=== PATIENT | female | born 1990 | race African-American/Black ===

== ENCOUNTER 2017-07-14 20:41 | Emergency (ER) | payer OTHER ==
[~2017-07-14] VITALS: Ht 167.6 cm; Wt 101.0 kg
[2017-07-14 20:43] VITALS: Ht 167.6 cm; Wt 101.0 kg
[2017-07-14] MEDS ORDERED: ONDANSETRON (ODT) 4 MG TAB ODT STA (22:19)
[2017-07-14] MEDS ORDERED: KETOROLAC 30 MG INJ IM STA (22:19)
[2017-07-14] MEDS ORDERED: MECLIZINE 12.5 MG TAB PO ONE (22:30)
--- NOTE | 2017-07-14 22:55 | RADRPT ---
PROCEDURE: CT Brain without contrast. CLINICAL INDICATION: Headaches. Neurologic deficit TECHNIQUE: A CT of the brain was performed on multidetector high-resolution CT scanner utilizing a xial sections from the skull base through the vertex without contrast. One or more of the following dose reduction techniques were used: Automated exposure control, Adjustment of the mA and/or kV acc ording to patient size, and/or use of iterative reconstruction technique. DICOM images are available . DOSE: CTDI = 45 mGy and the DLP = 720 mGy-cm. COMPARISON: None available FINDINGS: No acute intracranial hemorrhage, significant mass effect or midline shift. The miranda-white different iation is grossly preserved. The ventricles are normal in size for age. No significant opacification of the visualized paranasal sinuses or mastoids. IMPRESSION: No acute intracranial findings. RPTAT: AA .Andre Dale MD, MD Date Time Electronically viewed and signed by .Andre Dale MD, on 07/14/2017 22:55 .T/
[2017-07-14 23:37] LABS: BASOPHILS % 0.5 % (0.0-2.0); EOSINOPHILS # 0.1 10^3/ul (0.0-0.5); EOSINOPHILS % 0.8 % (0.0-7.0); HEMATOCRIT 38.3 % (37.0-47.0); LYMPHOCYTES # 2.8 10^3/ul (0.8-2.9); LYMPHOCYTES % 46.3 % (15.0-51.0); MEAN CORPUSCULAR HGB CONC 31.3 g/dl (32.0-37.0); MEAN CORPUSCULAR VOLUME 82.9 fl (82.0-101.0); MEAN PLATELET VOLUME 9.4 fl (7.4-10.4); MONOCYTE # 0.5 10^3/ul (0.3-0.9); MONOCYTES % 7.6 % (0.0-11.0); NEUTROPHIL # 2.7 10^3/ul (1.6-7.5); NEUTROPHILS % 44.5 % (39.0-77.0); PLATELET COUNT 407 10^3/UL (140-415); RED BLOOD COUNT 4.62 10^6/ul (4.20-5.40); WHITE BLOOD COUNT 6.1 10^3/ul (4.8-10.8)
[2017-07-14 23:57] LABS: CALCIUM 9.2 mg/dl (8.4-10.2); CREATININE 0.78 mg/dl (0.44-1.00); POTASSIUM 3.7 mmol/L (3.5-5.1)
[2017-07-15 00:28] VITALS: BP 121/80; PULSE 70; RESP 20; TEMP 98.1
--- NOTE | 2017-07-19 09:09 | ERD ---
ER Documentation Chief Complaint Chief Complaint felt dizzy today HPI Patient is a 27 yo female presenting for dizziness and headache which began yesterday at 1pm. She localizes the headache behind the L eye. She took ibuprofen and it resolved now. She describes the dizziness as intermittent, room spinning. She denies n/v/d, fevers and other sxs currently. ROS All systems reviewed and are negative except as per history of present illness. Allergies Allergies: Coded Allergies: No Known Allergy (Unverified , 03/04/12) PMhx/Soc Medical and Surgical Hx: pt denies Medical Hx, pt denies Surgical Hx Hx Alcohol Use: No Hx Substance Use: No Hx Tobacco Use: No Smoking Status: Never smoker Physical Exam Physical Exam Const: Non toxic well appearing female in no acute distress. Head: Atraumatic Eyes: Normal Conjunctiva ENT: Normal External Ears, Nose and Mouth. Neck: Full range of motion..~ No meningismus. Resp: Clear to auscultation bilaterally Cardio: Regular rate and rhythm, no murmurs Skin: No petechiae or rashes Ext: No cyanosis, or edema Neur: Awake and alert Psych: Normal Mood and Affect Results 24 hrs Laboratory Tests Test 07/14/17 22:24 White Blood Count 6.110^3/ul Red Blood Count 4.6210^6/ul Hemoglobin 12.0g/dl Hematocrit 38.3% Mean Corpuscular Volume 82.9fl Mean Corpuscular Hemoglobin 26.0pg Mean Corpuscular Hemoglobin Concent 31.3g/dl Red Cell Distribution Width 14.0% Platelet Count 69355^3/UL Mean Platelet Volume 9.4fl Neutrophils % 44.5% Lymphocytes % 46.3% Monocytes % 7.6% Eosinophils % 0.8% Basophils % 0.5% Nucleated Red Blood Cells % 0.0/100WBC Neutrophils # 2.710^3/ul Lymphocytes # 2.810^3/ul Monocytes # 0.510^3/ul Eosinophils # 0.110^3/ul Basophils # 0.010^3/ul Nucleated Red Blood Cells # 0.010^3/ul Sodium Level 139mmol/L Potassium Level 3.7mmol/L Chloride Level 105mmol/L Carbon Dioxide Level 27mmol/L Anion Gap 11 Blood Urea Nitrogen 11mg/dl Creatinine 0.78mg/dl Glucose Level 81mg/dl Calcium Level 9.2mg/dl Beta HCG, Quantitative 52.6mIU/ml Current Medications Medications (Trade) Dose Ordered Sig/Katalina Route PRN Reason Start Time Stop Time Status Last Admin Dose Admin Meclizine HCl (Antivert) 25 mg ONCE ONCE PO 07/14/17 22:30 07/14/17 23:10 DC Ondansetron HCl (Zofran Odt) 4 mg ONCE STAT ODT 07/14/17 22:19 07/14/17 22:24 DC 07/14/17 23:21 Ketorolac Tromethamine (Toradol) 30 mg ONCE STAT IM 07/14/17 22:19 07/14/17 23:10 DC Procedures/MDM Patient is a pleasant 27-year-old female presenting to the emergency department with complaints of intermittent dizziness which she first noticed yesterday. Physical exam is essentially unremarkable. Review of laboratory results: CBC showed no signs of leukocytosis or anemia. Chemistry panel was within normal limits. Beta hCG quantitative was 52. The patient denied chance of initially and stated she was wearing a contraceptive patch. The patient remained stable throughout her ED course and her dizziness improved completely. Due to the nature of the patient's severe dizziness on her presentation brain CT was obtained. This showed no acute intracranial findings. The patient was counseled regarding her results and she was advised to follow-up with [facility] and her primary care physician. She was given the [facility] [employer] referral list. Because her symptoms resolved, she was stable for discharge. She felt comfortable with her results and her questions and concerns were addressed. She is to return immediately for any new or worsening symptoms. Low suspicion for ectopic , intercranial pathology, or other emergent conditions at time of discharge. PROCEDURE: CT Brain without contrast. CLINICAL INDICATION: Headaches. Neurologic deficit TECHNIQUE: A CT of the brain was performed on multidetector high-resolution CT scanner utilizing axial sections from the skull base through the vertex without contrast. One or more of the following dose reduction techniques were used: Automated exposure control, Adjustment of the mA and/or kV according to patient size, and/or use of iterative reconstruction technique. DICOM images are available. DOSE: CTDI = 45 mGy and the DLP = 720 mGy-cm. COMPARISON: None available FINDINGS: No acute intracranial hemorrhage, significant mass effect or midline shift. The miranda-white differentiation is grossly preserved. The ventricles are normal in size for age. No significant opacification of the visualized paranasal sinuses or mastoids. IMPRESSION: No acute intracranial findings. RPTAT: AA .Andre Dale MD, Date Time Electronically viewed and signed by .Andre Dale MD, on 07/14/2017 22:55 Departure Diagnosis: Primary Impression: state, incidental Additional Impression: Dizziness Condition: Fair Patient Instructions: : Body Changes, Dizziness, Unk Cause, , New Dx Referrals: [facility] YOU HAVE RECEIVED A MEDICAL SCREENING EXAM AND THE RESULTS INDICATE THAT YOU DO NOT HAVE A CONDITION THAT REQUIRES URGENT TREATMENT IN THE EMERGENCY DEPARTMENT. FURTHER EVALUATION AND TREATMENT OF YOUR CONDITION CAN WAIT UNTIL YOU ARE SEEN IN YOUR DOCTORS OFFICE WITHIN THE NEXT 1-2 DAYS. IT IS YOUR RESPONSIBILITY TO MAKE AN APPOINTMENT FOR FOLOW-UP CARE. IF YOU HAVE A PRIMARY DOCTOR --you should call your primary doctor and schedule an appointment IF YOU DO NOT HAVE A PRIMARY DOCTOR YOU CAN CALL OUR PHYSICIAN REFERRAL HOTLINE AT IF YOU CAN NOT AFFORD TO SEE A PHYSICIAN YOU CAN CHOSE FROM THE FOLLOWING [facility] [address] [facility]. [facility] [address] [facility]. [facility] [address] [facility] [address] [facility] [address] [facility]. [facility]. [address]OPE[address] [facility] [place] L[place] [address] [facility] [address] [place] [address]LEME [address] [address] [address] BALTAZAR, BRYAN [address] [place] [address] DR DURANT, [facility] [address], [address], [place] [address] DR EGAN, SRINIST. [facility] [address] [address] [facility], [place] [address] [facility] [address] [place] [address] [address] [facility], [facility] [address] - DR MCMILLAN, JODI [address], [facility] [address] [address] HAMPTON, MANSI [address] [facility]. [address], [facility] [address] [address] KRAUSE, [facility] [address] [place], [place] [id number] [facility] Hours: 8:00 am - 5:00 pm Additional Instructions: Call your primary care doctor TOMORROW for an appointment during the next 1-2 days.See the doctor sooner or return here if your condition worsens before your appointment time. MARLEY MAXWELL PA-C Jul 19, 2017 09:08
== END 2017-07-15 00:30 | disposition home or self-care (01) ==
LOC: FTE 20:41
DX: R42 Dizziness and giddiness (principal); Z33.1 Pregnant state, incidental
CPT/HCPCS: 70450; 80048; 84702; 85025; Z7502; Z7610

== ENCOUNTER 2017-09-21 12:33 | Emergency (ER) | END 2017-09-21 17:41 | disposition home or self-care (01) ==

== ENCOUNTER 2017-11-18 22:16 | Emergency (ER) | END 2017-11-19 00:35 | disposition home or self-care (01) ==

== ENCOUNTER 2017-12-04 08:18 | Outpatient (CLI) | END 2017-12-04 18:40 | disposition home or self-care (01) ==

== ENCOUNTER 2018-02-27 15:50 | Inpatient (IN) | END 2018-02-28 20:07 | disposition home or self-care (01) | DRG 782 ==

== ENCOUNTER 2018-03-06 23:50 | Inpatient (IN) | END 2018-03-12 13:20 | disposition home or self-care (01) | DRG 766 ==

== ENCOUNTER 2018-08-12 18:25 | Emergency (ER) | payer OTHER ==
[~2018-08-12] VITALS: Ht 162.6 cm; Wt 105.7 kg
[~2018-08-12 18:25] MED LIST: IBUP-1544 PO; PREN-93 PO
[2018-08-12 18:34] VITALS: Ht 162.6 cm; Wt 105.7 kg
[2018-08-12] MEDS ORDERED: PROM6.2515 PO (20:03)
[2018-08-12] MEDS ORDERED: PSEU-79 PO (20:03)
[2018-08-12] MEDS ORDERED: NAPR-985 PO (20:03)
[2018-08-12] MEDS ORDERED: BENZ-6 PO (20:03)
[2018-08-12 20:29] VITALS: BP 123/70; PULSE 79; RESP 20
--- NOTE | 2018-08-12 20:48 | ERD ---
ER Documentation Chief Complaint Chief Complaint ST WITH DRY COUGH [id number] HPI 28-year-old female presenting with sore throat, cough and runny nose times 1 week. Patient states she had fevers that have now resolved. She took that NyQuil this morning but no other medications. Denies chest pain or shortness of breath. Denies neck pain or headaches. Denies vomiting. Denies medical problems. Allergy to clindamycin. Surgical history is . Social history denies ROS All systems reviewed and are negative except as per history of present illness. Medications Home Meds Active Scripts Naproxen* (Naprosyn*) 500 Mg Tablet, 500 MG PO BID PRN for PAIN AND/OR INFLAMMATION, #30 TAB Prov:NICOLÁS DWYER PA-C 08/12/18 Pseudoephedrine Hcl* (Suphedrin*) 30 Mg Tablet, 30 MG PO Q6 PRN for CONGESTION, #30 TAB Prov:NICOLÁS DWYER PA-C 08/12/18 Benzonatate* (Tessalon Perle*) 100 Mg Capsule, 100 MG PO Q8H PRN for COUGH, #30 CAP Prov:NICOLÁS DWYER PA-C 08/12/18 Promethazine Hcl* (Promethazine Hcl* Syrup) 6.25 Mg/5 Ml Syrup, 6.25 MG PO Q6H PRN for COUGH, #100 ML Prov:NICOLÁS DWYER PA-C 08/12/18 Ibuprofen* (Ibuprofen*) 800 Mg Tablet, 800 MG PO Q8, #60 TAB 0 Refills Prov:MESERET BURNETT MD 03/11/18 Reported Medications Vit No.124/Iron/FA ( Vitamin Tablet) 1 Each Tablet, 1 EACH PO, TAB 02/27/18 Allergies Allergies: Coded Allergies: clindamycin (Verified Allergy, Intermediate, 08/12/18) Hives Pork/Porcine Containing Products (Verified Allergy, Unknown, 08/12/18) PMhx/Soc History of Surgery: Yes (C SEC X'S 2, HERNIA) Anesthesia Reaction: No Hx Miscellaneous Medical Probl: Yes (MIGRAINES) Hx Alcohol Use: No Hx Substance Use: No Hx Tobacco Use: No Smoking Status: Never smoker FmHx Family History: No diabetes, No coronary disease, No other Physical Exam Vitals Vital Signs Date Temp Pulse Resp B/P (MAP) Pulse Ox O2 O2 Flow FiO2 Time Delivery Rate 08/12/18 98.1 79 20 123/70 100 Room Air 20:29 (87) 08/12/18 98.2 84 20 124/81 100 18:34 (95) Physical Exam GENERAL: The patient is well-appearing, well-nourished, in no acute distress HEENT: Atraumatic. Conjunctivae are pink. Pupils equal, round, and reactive to light. There is no scleral icterus. Tympanic membranes clear bilaterally. Oropharynx clear. NECK: C-spine is soft and supple. There is no meningismus. There is no cervical lymphadenopathy. CHEST: Clear to auscultation bilaterally. There are no rales, wheezes or rhonchi. HEART: Regular rate and rhythm. No murmurs, clicks, rubs or gallops. No S3 or S4. Procedures/MDM MDM: 28-year-old female presenting with URI type symptoms. I have low suspicion for pneumonia. I have low suspicion for meningitis or sepsis. I did not feel that patient requires antibiotics. Patient will be discharged with supportive medications and told to follow-up with primary care within 1-2 days for close evaluation. Patient is told if symptoms change or worsen to immediately return to the ER. All questions answered at discharge Departure Diagnosis: Primary Impression: URI (upper respiratory infection) Condition: Stable Patient Instructions: Uri, Viral, No Abx (Adult) Additional Instructions: FOLLOW UP WITH YOUR PRIMARY CARE PHYSICIAN TOMORROW.Return to this facility if you are not improving as expected. NICOLÁS DWYER PA-C Aug 12, 2018 20:48
== END 2018-08-12 20:24 | disposition home or self-care (01) ==
LOC: FTE 18:25
DX: J06.9 Acute upper respiratory infection, unspecified (principal)
CPT/HCPCS: 99283

== ENCOUNTER 2018-11-30 12:01 | Emergency (ER) | payer OTHER ==
[~2018-11-30] VITALS: Wt 104.1 kg
[~2018-11-30 12:01] MED LIST changes: +BENZ-6 PO; +NAPR-985 PO; +PROM6.2515 PO; +PSEU-79 PO
[2018-11-30 12:06] VITALS: BP 133/75; PULSE 90; RESP 18
[2018-11-30] MEDS ORDERED: BENZ1LOZ52 MM (14:56)
[2018-11-30] MEDS ORDERED: ACET500C5 PO (14:56)
[2018-11-30] MEDS ORDERED: D-ME473S2 PO (14:56)
--- NOTE | 2018-11-30 15:21 | ERD ---
ER Documentation Chief Complaint Chief Complaint sore throat and difficult to swallow for the past 2 days. HPI 28-year-old female patient with a past medical history of stomach ulcers prese nts to the ED complaining of sore throat, pain with swallowing, as well as slight cough. Patient denies any fever, chills, nausea, vomiting, diarrhea, neck stiffness. Patient is eating appropriate, tolerating oral intake. Denies any chest pain, shortness of breath, abdominal pain. Patient's daughter is also sick with similar symptoms. ROS All systems reviewed and are negative except as per history of present illness. Medications Home Meds Active Scripts Benzocaine/Menthol* (Cepacol* Sore Throat Lozenges) 1 Each Lozenge, 1 EACH MM q2h PRN for SORE THROAT, #20 LOZENGE Prov:TAL DUPONT PA-C 11/30/18 Acetaminophen* (Tylophen*) 500 Mg Capsule, 1 CAP PO Q6H PRN for PAIN AND OR ELEVATED TEMP, #20 CAP Prov:TAL DUPONT PA-C 11/30/18 Dextromethorphan Hb-Promethazine Hcl* (Promethazine DM* Syrup) 473 Ml Syrup, 5 ML PO Q6 PRN for COUGH, #120 ML Prov:TAL DUPONT PA-C 11/30/18 Naproxen* (Naprosyn*) 500 Mg Tablet, 500 MG PO BID PRN for PAIN AND/OR INFLAMMATION, #30 TAB Prov:NICOLÁS DWYER PA-C 08/12/18 Pseudoephedrine Hcl* (Suphedrin*) 30 Mg Tablet, 30 MG PO Q6 PRN for CONGESTION, #30 TAB Prov:NICOLÁS DWYER PA-C 08/12/18 Benzonatate* (Tessalon Perle*) 100 Mg Capsule, 100 MG PO Q8H PRN for COUGH, #30 CAP Prov:NICOLÁS DWYER PA-C 08/12/18 Promethazine Hcl* (Promethazine Hcl* Syrup) 6.25 Mg/5 Ml Syrup, 6.25 MG PO Q6H PRN for COUGH, #100 ML Prov:NICOLÁS DWYER PA-C 08/12/18 Ibuprofen* (Ibuprofen*) 800 Mg Tablet, 800 MG PO Q8, #60 TAB 0 Refills Prov:MESERET BURNETT MD 03/11/18 Reported Medications Vit No.124/Iron/FA ( Vitamin Tablet) 1 Each Tablet, 1 EACH PO, TAB 02/27/18 Allergies Allergies: Coded Allergies: clindamycin (Verified Allergy, Intermediate, 08/12/18) Hives Pork/Porcine Containing Products (Verified Allergy, Unknown, 08/12/18) PMhx/Soc History of Surgery: Yes (C SEC X'S 2, HERNIA) Anesthesia Reaction: No Hx Miscellaneous Medical Probl: Yes (MIGRAINES) Hx Alcohol Use: No Hx Substance Use: No Hx Tobacco Use: No FmHx Family History: No diabetes, No coronary disease Physical Exam Vitals Vital Signs Date Temp Pulse Resp B/P (MAP) Pulse Ox O2 O2 Flow FiO2 Time Delivery Rate 11/30/18 98.1 90 18 133/75 98 12:06 (94) Physical Exam Const: Ala-aev-dwvohkyxr, well-nourished. In no acute distress. Head: Atraumatic, normocephalic Eyes: Normal Conjunctiva without injection. No purulent discharge. PERRL. EOMI ENT: Normal external ear. Ear canal without erythema. Tympanic membrane pearly miranda without effusion or bulging. Nasal canal clear with normal turbinates. Moist oropharynx without tonsillar exudates. Non-erythematous pharynx. Uvula midline. No drooling. No trismus. Neck: Full range of motion. No meningismus. No cervical lymphadenopathy. Resp: Clear to auscultation bilaterally. No wheezing, rhonchi, rales, or aircraft seat upholsterer ckles. No accessory muscle use. No retractions. Cardio: Regular rate and rhythm. No murmurs, rubs or gallops. Abd: Soft, non tender, non distended. Normal bowel sounds. No palpable masses. No rebound tenderness. No guarding. Skin: No petechiae or rashes Back: No midline tenderness. No CVA tenderness. Ext: No cyanosis, or edema. Neur: Awake and alert. Psych: Normal Mood and Affect Procedures/MDM 28-year-old female patient with no significant past medical history presents ED complaining of sore throat, pain with swallowing, sore throat, cough. Patient is afebrile and nontoxic-appearing. Patient symptoms are likely secondary to viral etiology. This patient presents to the ED with symptoms consistent with a viral acute upper respiratory infection. Patient's physical exam include lungs which were clear to auscultation and a normal pulse oximetry. There is a low suspicion for pneumonia, pneumothorax, mononucleosis, pulmonary embolism, epiglottitis, otitis media, otitis externa, viral/strep pharyngitis, sinusitis, myocarditis, pericarditis, endocarditis, peritonsillar abscess, mastoiditis, retropharyngeal abscess, meningitis, sepsis, acute abdomen or other emergent conditions. Fluids, rest, and symptomatic treatment are recommended for the management of patient's symptoms. Diagnosis: Sore throat, cough Discharge medications: Promethazine DM, Cepacol throat lozenges, ibuprofen Follow up with primary care physician in 1-2 days. Instructed patient to return to the ED sooner for any worsening symptoms. Patient's questions were answered. Patient is hemodynamically stable. Patient understood and agreed with discharge plan. Patient discharged stable. Disclaimer: Inadvertent spelling and grammatical errors are likely due to EHR/dictation software use and do not reflect on the overall quality of patient care. Also, please note that the electronic time recorded on this note does not necessarily reflect the actual time of the patient encounter. Departure Diagnosis: Primary Impression: Sore throat Additional Impression: Cough Condition: Stable Patient Instructions: Uri, Viral, No Abx (Adult) Referrals: [facility] YOU HAVE RECEIVED A MEDICAL SCREENING EXAM AND THE RESULTS INDICATE THAT YOU DO NOT HAVE A CONDITION THAT REQUIRES URGENT TREATMENT IN THE EMERGENCY DEPARTMENT. FURTHER EVALUATION AND TREATMENT OF YOUR CONDITION CAN WAIT UNTIL YOU ARE SEEN IN YOUR DOCTORS OFFICE WITHIN THE NEXT 1-2 DAYS. IT IS YOUR RESPONSIBILITY TO MAKE AN APPOINTMENT FOR FOLOW-UP CARE. IF YOU HAVE A PRIMARY DOCTOR --you should call your primary doctor and schedule an appointment IF YOU DO NOT HAVE A PRIMARY DOCTOR YOU CAN CALL OUR PHYSICIAN REFERRAL HOTLINE AT IF YOU CAN NOT AFFORD TO SEE A PHYSICIAN YOU CAN CHOSE FROM THE FOLLOWING [facility] [address] [facility]. [facility] [address] [facility]. [facility] [address] [facility] [address] [facility] [address] [facility] [address] [facility]. [facility] YOU HAVE RECEIVED A MEDICAL SCREENING EXAM AND THE RESULTS INDICATE THAT YOU DO NOT HAVE A CONDITION THAT REQUIRES URGENT TREATMENT IN THE EMERGENCY DEPARTMENT. FURTHER EVALUATION AND TREATMENT OF YOUR CONDITION CAN WAIT UNTIL YOU ARE SEEN IN YOUR DOCTORS OFFICE WITHIN THE NEXT 1-2 DAYS. IT IS YOUR RESPONSIBILITY TO MAKE AN APPOINTMENT FOR FOLOW-UP CARE. IF YOU HAVE A PRIMARY DOCTOR --you should call your primary doctor and schedule and appointment IF YOU DO NOT HAVE A PRIMARY DOCTOR YOU CAN CALL OUR PHYSICIAN REFERRAL HOTLINE AT . IF YOU CAN NOT AFFORD TO SEE A PHYSICIAN YOU CAN CHOSE FROM THE FOLLOWING ON LICENSE OF [facility] INSTITUTIONS: [facility] [address] [place] [address] [facility] [address] [place] [address] [facility] [address] [place] [address] [facility]CIAL[facility] Additional Instructions: Call your primary care doctor TOMORROW for an appointment during the next 2-3 days.See the doctor sooner or return here if your condition worsens before your appointment time. TAL DUPONT PA-C Nov 30, 2018 15:21
== END 2018-11-30 15:12 | disposition home or self-care (01) ==
LOC: FTE 12:01
DX: J02.9 Acute pharyngitis, unspecified (principal)
CPT/HCPCS: 99283